=== PATIENT | male | born 1960 | race African-American/Black ===

== ENCOUNTER 2020-07-25 11:06 | Emergency (ER) | payer MEDICARE, MEDICAID ==
[~2020-07-25] VITALS: Ht 190.5 cm; Wt 113.6 kg
[2020-07-25 11:17] VITALS: Ht 190.5 cm; Wt 113.6 kg
[2020-07-25 11:56] LABS: BASOPHILS 0.3 % (0-2); EOSINOPHILS 1.5 % (0-7); HEMATOCRIT 42.5 % (42.0-54.0); LYMPHOCYTES 25.5 % (15-50); MCHC 35.3 g/dL (31.0-37.0); MCV 93.4 fL (80.0-100.0); MEAN PLATELET VOLUME 11.8 fL (7.4-10.4); MONOCYTES 7.4 % (2-11); NEUTROPHILS 65.3 % (40-80); PLATELET COUNT 141 10x3/uL (130-400); RBC 4.55 10x6/uL (4.20-6.10); RDW 12.1 % (11.5-14.5); WBC 9.4 10x3/uL (4.8-10.8)
[2020-07-25 12:12] LABS: CALC OSMOLALITY 280 mosm/kg (275-300); CALCIUM 9.3 mg/dL (8.5-10.1); CARBON DIOXIDE 27.4 mmol/L (21.0-32.0); CHLORIDE - SERUM 100 mmol/L (98-107); CREATININE - SERUM 0.9 mg/dL (0.6-1.3); GLUCOSE 311 mg/dL (74-106); POTASSIUM - SERUM 3.6 mmol/L (3.5-5.1); SODIUM 135 mmol/L (136-145); UREA NITROGEN 11 mg/dL (7-18); eGFR NON AFRICAN AMERICAN > 90 mL/min (90-120)
[2020-07-25 12:14] LABS: APTT 25.5 SECONDS (22.8-39.4); INR 0.88 (0.85-1.17); PROTIME 11.9 SECONDS (11.6-15.0)
[2020-07-25 12:28] LABS: ALBUMIN 3.6 g/dL (3.4-5.0); ALKALINE PHOSPHATASE 68 U/L (30-120); ALT (SGPT) 40 U/L (10-68); CKMB 1.3 U/L (0.0-3.6); CREATINE KINASE 98 UL (21-232); MAGNESIUM - SERUM 1.5 mg/dL (1.8-2.4); PROTEIN - SERUM 7.1 g/dL (6.4-8.2)
[2020-07-25 12:30] LABS: TROPONIN-I < 0.017 ng/mL (0.000-0.060)
[2020-07-25 14:30] VITALS: BP 120/76
== END 2020-07-25 14:30 | disposition left against medical advice (07) ==
LOC: D.ER 11:06
PROVIDERS: Family Medicine
DX: R07.9 Chest pain, unspecified (principal); M54.9 Dorsalgia, unspecified; G89.29 Other chronic pain; E11.65 Type 2 diabetes mellitus with hyperglycemia; I10 Essential (primary) hypertension; Z72.0 Tobacco use